=== PATIENT | female | born 1945 | race Caucasian/White ===

== ENCOUNTER 2024-05-31 07:23 | Day surgery (SDC) | payer OTHER, BC ==
[2024-05-31] MEDS ORDERED: CEFAZOLIN SODIUM 2 GM/VIAL ONE (07:44)
[2024-05-31] MEDS ORDERED: Ringers Lactate 1,000 ML IV ONE (07:45)
[2024-05-31 07:50] LABS: PT Prothrombin Time 12.4 SECONDS (9.4-12.5); PTT, Activated Partial Thromb 30.6 SECONDS (24.3-36.9); Protime INR 1.11
[2024-05-31] MEDS ORDERED: LIDOCAINE 2% MPF 5 ML VIAL ONE (08:13)
[2024-05-31] MEDS ORDERED: propofoL 200 MG/20 ML VIAL IV ONE (08:13)
[2024-05-31] MEDS ORDERED: dexAMETHasone 4 MG/ML VIAL ONE (08:13)
[2024-05-31] MEDS ORDERED: ONDANSETRON 4 MG/2 ML VIAL ONE (08:13)
[2024-05-31] MEDS ORDERED: FENTANYL CITR 100 MCG/2 ML ONE (08:13)
[2024-05-31] MEDS ORDERED: LIDOCAINE 1% MPF 30 ML VIAL ONE (08:16)
[2024-05-31] MEDS ORDERED: BUPIVACAINE 0.5% PF 10 ML VIAL ONE (08:16)
--- NOTE | 2024-05-31 09:48 | P.OP ---
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 General anesthesia began. Patient prepped and draped in the usual sterile fashion. Marcaine 0.5% infiltrated locally. 15 blade used to make a 3 x 1.5 cm incision around a pleomorphic irritated mass on the left face in front of the ear. Subcutaneous tissue divided and entire mass excised. The mass labeled appropriately and sent to pathology for frozen section. Wound irrigated and bleeding controlled cautery. Flaps created. 4-0 chromic used to approximate subcutaneous tissue. 5-0 Prolene used to close skin. Sterile dressing applied. Then, 4 x 2 cm incision made over the left dorsum of the hand at the base of the second proximal phalanx. Subcutaneous tissue divided and entire 1.5 cm pruitt sed mass excised and sent to pathology as specimen after being labeled appropriately. Wound irrigated bleeding controlled cautery. Flaps created. 4- 0 chromic used to approximate subcutaneous tissue. 5-0 Prolene used to close skin. The left face mass had to be excised as the margins were close to the 6 o'clock position. Sterile dressing applied. Patient awakened taken to recovery room in good general condition. CC:
[2024-05-31 11:57] VITALS: BP 113/59; TEMP 97.4; O2SAT 98
== END 2024-05-31 11:56 | disposition home or self-care (01) ==
LOC: OR 07:23
PROVIDERS: ATTEND Surgery
PROC: 0JBK0ZZ Excision of Left Hand Subcutaneous Tissue and Fascia, Open Approach (ICD-10-PCS; 2024-05-31)
PROC: 0JB10ZZ Excision of Face Subcutaneous Tissue and Fascia, Open Approach (ICD-10-PCS; principal; 2024-05-31 08:30)
DX: C44.310 Basal cell carcinoma of skin of unspecified parts of face (principal); C44.619 Basal cell carcinoma of skin of left upper limb, including shoulder
CPT/HCPCS: 36415; 85610; 88331; 88332; 88305; 85730; 11643; 11624; J2704; J1100; J2001; J3010; J2405; J7120

== ENCOUNTER 2024-09-28 06:37 | Day surgery (SDC) | payer OTHER, BC ==
[2024-09-24 11:43] LABS: Absolute Eosinophils 0.1 K/uL (0-0.5); Absolute Lymphocytes (CBC) 2.7 K/uL (0.7-4.9); Absolute Monocytes 0.7 K/uL (0.1-1.3); Absolute Neutrophil 4.4 K/uL (1.8-8.0); Basophils % 0.5 % (0-1.3); Eosinophils % 1.4 % (0-4.4); Hemoglobin 12.8 g/dL (12.0-15.0); Red Cell Distribution Width 14.1 % (12.1-15.2)
[2024-09-24 11:54] LABS: Lymphocytes % 34.3 % (15.3-44.8); MCH 30.6 pg (27.0-35.0); MCHC 33.6 g/dL (32.0-36.0); MCV 91.1 fL (80-100); MPV 7.3 fL (7.6-11.3); Monocytes % 8.8 % (3.3-12.3); Nucleated Red Blood Cells % 0.1 % (0-0); Platelets 281 thou/uL (152-406); RBC Red Blood Cell Count 4.17 M/uL (3.86-4.86)
[2024-09-24 11:57] LABS: PTT, Activated Partial Thromb 32.2 SECONDS (24.3-36.9); Protime INR 1.17
[2024-09-24 12:01] LABS: Anion Gap 8.3 mEq/L (5.0-15.0); Potassium 4.3 mEq/L (3.5-5.1)
[2024-09-28] MEDS: Ringers Lactate 1,000 ML IV ONE (07:10)
[2024-09-28] MEDS ORDERED: ONDANSETRON 4 MG/2 ML VIAL ONE (07:27)
[2024-09-28] MEDS ORDERED: LIDOCAINE 1% MPF 5 ML VIAL ONE (07:27)
[2024-09-28] MEDS ORDERED: propofoL 200 MG/20 ML VIAL IV ONE (07:27)
[2024-09-28] MEDS ORDERED: FENTANYL CITR 100 MCG/2 ML ONE (07:27)
[2024-09-28] MEDS: CEFAZOLIN SODIUM 1 GM/VIAL ONE (07:52)
--- NOTE | 2024-09-28 09:09 | RAD REPORT ---
EXAMUrethrocystogrphy Retrograde CLINICAL HISTORY: Placement of a left ureteral stent FINDINGS: A total of 11 images were sent to PACS, during a fluoroscopically guided retrograde urethrocystograp hy. No radiologist was involved in protocoling or performance of the study, and no radiologist was present for the duration of the procedure. No interpretation of the saved images will be provided. Total fluoroscopy time: 0.4 minutes
[2024-09-28 09:59] VITALS: BP 119/63; TEMP 97; O2SAT 99
[2024-09-28] MEDS ORDERED: TRAMADOL 37.5mg/APAP 325mg PER TAB PO ONE (11:23)
[2024-09-28] MEDS ORDERED: PHENAZOPYRIDINE 100MG TAB PO ONE (11:23)
--- NOTE | 2024-09-28 19:48 | P.OP ---
Date of Service: 09/28/24 Preoperative diagnoses: Left proximal ureterolithiasis Recurrent gross hematuria Postoperative diagnoses: Left renal pelvic filling defect, consistent with UPJ calculus Meatal stenosis Mid distal left ureteral stenosis Principal procedures: Meatal dilation using sounds Cystoscopy Left retrograde pyelography Left distal ureteroscopy Left 7 Norwegian by 24 cm double-J ureteral stent placement Indication for procedure: 78-year-old woman with celiac disease, A-fib on Eliquis and diltiazem, osteoporosis on denosumab and vitamin D, and hypercholesterolemia recurrent stone former with recurrent gross hematuria, 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 Procedure note: The patient was consented in the preoperative holding area before being transferred to the operative suite where general anesthesia was induced. She was given Ancef 1 g IV antimicrobial prophylaxis, and pneumoboots were provided for DVT prophylaxis. She was placed in the lithotomy position, padded and secured to the table appropriately. Her genitalia was prepped with Hibiclens and she was draped in standard fashion. The case was begun attempting to pass the 22 Norwegian rigid cystoscope via her urethra into her bladder, but in addition to vaginal stenosis, there was meatal stenosis. As a result, I had to employ urethral sounds to dilate the meatus to 24 Norwegian. I was then able to pass the 22 Norwegian cystoscope via her urethra into her bladder. The bladder was surveyed in its entirety, and again, noted were no papillary mucosal lesions, foreign bodies or stones. The ureteral orifices were orthotopic in location. I cannulated the left ureteral orifice using the tip of a 5 Norwegian ureteral access catheter. Left retrograde pyelography: Using a 70: 30 mixture of Omnipaque and saline, contrast was injected via the lumen of the 5 Norwegian ureteral access catheter with the aid of fluoroscopic imagery. The contrast did propagate up the distal into the mid and proximal ureter which was not dilated before passing around a filling defect, which was likely a radiolucent calculus, now at the UPJ on the left, before entering a relatively nondilated left renal pelvis and calyces. I then passed a sensor wire via the 5 Norwegian ureteral access catheter into the upper pole calyx as evidenced fluoroscopically. Over the sensor wire, I passed a dual-lumen catheter, which I was able to navigate beyond a point of stenosis in the mid distal ureter ultimately into the collecting system. The dual-lumen catheter was 10 Norwegian. I then passed a Bentson guidewire via the second lumen of the dual-lumen catheter coiling it alongside the sensor wire in the collecting system. I then remove the dual-lumen catheter and passed a 11 x 13 Norwegian ureteral access sheath over the Bentson guidewire attempting to navigate it into the collecting system; however, the access sheath would not pass beyond the point of stenosis encountered in the mid distal ureter. I thus removed the ureteral access sheath and attempted to pass the flexible ureteroscope over the Bentson guidewire into the collecting system. I was able to navigate the flexible ureteroscope into the mid distal ureter until it reached a point of resistance/obstruction beyond which I was not able to pass despite attempts with pressurized saline irrigation over the Bentson guidewire, and so I removed the flexible ureteroscope. I then replaced the ureteral access sheath to the point of obstruction before removing the Bentson guidewire leaving the access sheath tip in the mid distal ureter, and I again injected the contrast mixture to confirm appropriate intraluminal location of the access sheath. This was confirmed; so I passed a Super Stiff guidewire via the access sheath successfully into the collecting system. I then attempted to navigate the 11 x 13 Norwegian ureteral access sheath over the Super Stiff wire into the proximal ureter without success. As a result, at this point, I discontinued further attempts at access into the proximal ureter and collecting system, and instead, I backloaded the cystoscope over the indwelling sensor safety wire, and then I passed a 7 Norwegian by 24 cm double-J ureteral stent successfully into the collecting system with a coil observed fluoroscopically within the renal pelvis and 1 cystoscopically formed in her bladder. I then decompressed her bladder of fluid and urine and some heme, and took the patient out of the lithotomy position. She was then awakened from general anesthesia before being transferred to a stretcher, and then she was transferred to the recovery room in good condition. Complications: None Discharge disposition: She should be rescheduled for definitive management of the suspected left proximal ureter/renal calculus via ureteroscopy with laser lithotripsy and stent exchange, preferably within the next 30 days if possible. Since she has already undergone counseling and consent for the procedure, which was attempted today, and since I did branch credit counselor the patient's daughter that she should hold the Eliquis, as she did before, with the last dose on either Friday evening or Friday morning in preparation for Friday surgery, they should otherwise be well- prepared for repeat surgical excursion with only need for repeat preop urine culture taken closer to the date of actual surgery.
== END 2024-09-28 12:20 | disposition home or self-care (01) ==
LOC: OR 06:37
PROVIDERS: ATTEND Urology
PROC: 0T778DZ Dilation of Left Ureter with Intraluminal Device, Via Natural or Artificial Opening Endoscopic (ICD-10-PCS; principal; 2024-09-28 07:30)
DX: N20.0 Calculus of kidney (principal); R31.0 Gross hematuria; I48.11 Longstanding persistent atrial fibrillation; K90.0 Celiac disease; M81.0 Age-related osteoporosis without current pathological fracture; E78.00 Pure hypercholesterolemia, unspecified; Z79.01 Long term (current) use of anticoagulants
CPT/HCPCS: 87088; 85025; 87086; 80048; 36415; 85610; 85730; 74450; 51610; 52332; 52351; J2704; J2003; J3010; J2405; J7120; J0690

== ENCOUNTER 2024-10-05 07:21 | Day surgery (SDC) | payer OTHER, BC ==
[2024-10-05] MEDS: Ringers Lactate 1,000 ML IV ONE (07:30)
[2024-10-05] MEDS ORDERED: LIDOCAINE 2% MPF 5 ML VIAL ONE (07:38)
[2024-10-05] MEDS ORDERED: propofoL 200 MG/20 ML VIAL IV ONE (07:38)
[2024-10-05] MEDS ORDERED: FENTANYL CITR 100 MCG/2 ML ONE (07:38)
[2024-10-05] MEDS ORDERED: NA CHLORIDE 0.9% 50 ML ONE (07:43)
[2024-10-05] MEDS: CEFTRIAXONE 1000 MG/VIAL ONE (07:50)
[2024-10-05] MEDS ORDERED: CEFTRIAXONE 1,000 MG in NA CHLORIDE 0.9% 50 ML IVPB ONE (08:00)
[2024-10-05] MEDS ORDERED: ONDANSETRON 4 MG/2 ML VIAL ONE (09:18)
[2024-10-05] MEDS ORDERED: ROCURONIUM 50 MG/5 ML VIAL IV ONE (09:50)
--- NOTE | 2024-10-05 10:59 | RAD REPORT ---
Fluoroscopy time 0.31 minutes
--- NOTE | 2024-10-05 13:26 | P.OP ---
Date of Service: 10/05/24 Preoperative diagnoses: Left proximal 8 mm ureterolithiasis s/p left ureteral stent placement 10/05/2024 with attempted ureteroscopy Left mid distal ureteral stenosis Postoperative diagnoses: Left 8 mm nephrolithiasis s/p left ureteral stent placement 10/05/2024 with attempted ureteroscopy Persistence of left mid distal ureteral stenosis Principal procedures: Cystoscopy Left ureteral stent extraction Left retrograde pyelogram Left ureteral balloon dilation to 15 [place] Left ureteroscopy with pyeloscopy Pyeloscopic laser lithotripsy Left 7 [place] by 24 cm ureteral stent replacement Indication for procedure: 79-year-old woman who presented to the urology clinic with obstructive ureterolithiasis associated with gross hematuria and underwent attempted ureteroscopy with laser lithotripsy last week but subsequently only had a 7 [place] ureteral stent placed. She was miserable with the stent; so we returned today for definitive management of her stone. Procedure note: The patient was consented in the preoperative holding area before being transferred to the operative suite where general anesthesia was induced. She was given ceftriaxone 1 g IV antimicrobial prophylaxis, in addition to ciprofloxacin oral antimicrobial therapy provided preoperatively given her urine culture analysis. Pneumoboots were provided for DVT prophylaxis. She was placed in the lithotomy position, padded and secured to the table appropriately, and her genitalia was prepped with Hibiclens before being draped in standard fashion. The case was begun using a 22 [place] rigid cystoscope to traverse the urethra and into her bladder with relative ease. The stent was noted emanating from the right ureteral orifice and there was some hematuria present. The coil of the stent was grasped and delivered to the meatus leaving the proximal end of the stent within the proximal ureter/renal pelvis. I thus passed a sensor wire via the stent into her renal pelvis coiling it within the midpole calyces. Leaving the wire in place I remove the stent and then placed the cystoscope back into her bladder using a 5 [place] ureteral access catheter to perform a retrograde pyelogram. Left retrograde pyelography: Using a 70: 30 mixture of Omnipaque and saline, contrast was injected via the lumen of the 5 [place] ureteral access catheter and did propagate up the mid into the distal and proximal ureter before entering the renal pelvis and calyces normally ensuring the sensor wire was appropriately positioned within the midpole calyces as suspected. The stone was not fluoroscopically visible. As a result, I passed a [employer] guidewire via the lumen of the 5 [place] ureteral access catheter and coiled it in the upper pole calyx. I then removed the 5 [place] ureteral access catheter and passed over the Bentson guidewire an 11 x 13 [place] ureteral access sheath. Unfortunately, as previously encountered, the access sheath met a point of obstruction at the pelvic inlet within the mid distal ureter and would not pass beyond this. I switched the Bentson guidewire for a Super Stiff wire to try to enable passing the ureteral access sheath over a stiffer wire, but this would also not allow the access sheath to pass. As a result, leaving the Super Stiff wire in place, I removed the ureteral access sheath. Ureteral 15 [place] by 6 cm balloon dilation: I then utilized a 6 cm 15 [place] ureteral balloon past to the area of ureteral obstruction as evidenced fluoroscopically, and I dilated the balloon to between 10 and 15 mmHg pressure.. I did this at a couple of points along the mid and distal ureter, and then remove the ureteral balloon. After this, I was then able to pass the ureteral access sheath beyond the point of stenosis into the proximal ureter and the collecting system with relative ease. Ureteroscopy with pyeloscopy and laser lithotripsy: I then placed the flexible ureteroscope via the ureteral access sheath into the collecting system and surveyed the upper pole calyx ease and midpole calyces ultimately encountering the stone in the renal pelvis near the lower pole calyces. I then utilized a 270 nm laser fiber at a power setting of 0.4 J and 25 Hz to quickly fragment the stone into dust. I continued to fragment the dust fragments until all were approximately the size of the laser fiber tip or smaller. Once this was completed, I then surveyed through each of the calyces again to ensure no residual stone fragments of any significant size, and once this was confirmed, I then backed the scope back into the renal pelvis and surveyed down into the proximal, mid, and distal ureter on the way out. There was no evidence of ureteral injury, and no additional stone fragments were noted. As a result, once out of the collecting system, ureteroscopy was discontinued. I then backloaded the cystoscope over the indwelling sensor safety wire, and I passed a 7 [place] by 24 cm double-J ureteral stent with ease into the upper pole where a coil was formed fluoroscopically and 1 cystoscopically formed in her bladder. I then decompressed her bladder of fluid and urine, and remove the cystoscope. She was then taken out of the lithotomy position, awakened from general anesthesia, transferred to a stretcher, and then transferred to the recovery room in good condition. Complications: None Discharge disposition: I would like for her to keep the ureteral stent if tolerable for the next 2 to 3 weeks given the ureteral stenosis encountered. To that end, oxybutynin will be provided to assist the stent discomfort in addition to Toradol/ketorolac. Subsequent follow-up will be determined based on whether she is a recurrent stone former. Renal ultrasound will be recommended approximately 2 to 3 months after the stent is removed to ensure no significant ureteral stricture disease causing hydronephrosis. Findings and Operative Technique
[2024-10-08 01:08] VITALS: BP 122/63; TEMP 98.1; O2SAT 99
== END 2024-10-05 12:20 | disposition home or self-care (01) ==
LOC: OR 07:21
PROVIDERS: ATTEND Urology
PROC: 0T778DZ Dilation of Left Ureter with Intraluminal Device, Via Natural or Artificial Opening Endoscopic (ICD-10-PCS; 2024-10-05)
PROC: 0TF78ZZ Fragmentation in Left Ureter, Via Natural or Artificial Opening Endoscopic (ICD-10-PCS; principal; 2024-10-05 08:30)
DX: N20.1 Calculus of ureter (principal); Q62.10 Congenital occlusion of ureter, unspecified
CPT/HCPCS: 87088; 87086; 87077 ×2; 87186 ×2; 74450; 51610; 52344; 52356; J2704; J2003; J3010; J2405; J7120; J0696